=== PATIENT | female | born 1955 | race Caucasian/White ===

== ENCOUNTER 2020-09-24 09:50 | Emergency (ER) | payer OTHER ==
[2020-09-24 10:04] VITALS: BP 105/70; PULSE 94; TEMP 98.1; BMI 26.9
[2020-09-24] MEDS ORDERED: ACETAMINOPHEN 500 MG TABLET (FP) PO ONE (10:34)
[2020-09-24 11:06] LABS: THROAT:GRP A STREP Negative (Negative)
== END 2020-09-24 10:37 | disposition home or self-care (01) ==
LOC: JER 09:50
DX: U07.1 COVID-19 (principal)
CPT/HCPCS: 87070; 87077; 87880; 99283-25; C9803; U0003

== ENCOUNTER 2021-04-28 05:57 | Day surgery (SDC) | payer OTHER ==
[2021-04-23 11:41] VITALS: BMI 27.7
[2021-04-28] MEDS ORDERED: BUPIVACAINE HCL/PF 0.5% (5MG/ML) 10 ML VIAL ONE (07:14)
[2021-04-28] MEDS ORDERED: MIDAZOLAM HCL 2 MG/2 ML SINGLE DOSE VIAL ONE ×3 (07:14→09:43)
[2021-04-28] MEDS ORDERED: BUPIVACAINE LIPOSOME/PF (EXPAREL) 266 MG/20 ML VIAL ONE (07:14)
[2021-04-28] MEDS ORDERED: SODIUM CHLORIDE 0.9% P/F 10 ML VIAL IJ ONE (07:15)
[2021-04-28] MEDS ORDERED: VANCOMYCIN 1,000 MG VIAL (RESTRICTED TO ID ONLY) ONE (07:27)
[2021-04-28] MEDS ORDERED: MAG HYDROX/AL HYDROX/SIMETH 30 ML UNIT-DOSE CUP PO PRN (07:36)
[2021-04-28] MEDS ORDERED: BUPIVACAINE HCL 50 ML ONE (07:56)
[2021-04-28] MEDS ORDERED: PROPOFOL 20 ML ONE ×5 (08:10)
[2021-04-28] MEDS ORDERED: SUCCINYLCHOLINE CHLORIDE 200 MG/10 ML SYRINGE ONE (08:10)
[2021-04-28] MEDS ORDERED: ONDANSETRON 4 MG/2 ML VIAL ONE (08:26)
[2021-04-28] MEDS ORDERED: TRANEXAMIC ACID 1000 MG/10 ML VIAL ONE ×2 (08:26→10:15)
[2021-04-28] MEDS ORDERED: ceFAZolin SODIUM 1 GM VIAL ONE (08:26)
[2021-04-28] MEDS ORDERED: BUPIVICAINE 0.25%/MORPH PF/KETOROLAC - 51ML DISP.SYRINGE IA ONE (09:51)
[2021-04-28] MEDS ORDERED: KETOROLAC TROMETHAMINE 30 MG/1 ML VIAL ONE (10:15)
[2021-04-28] MEDS ORDERED: ACETAMINOPHEN INJECTION 100 ML IVPB ONE (11:32)
[2021-04-28] MEDS ORDERED: ACETAMINOPHEN 1000 MG/100 ML VIAL (NON FORMULARY) IVPB ONE ×4 (11:35→22:00)
[2021-04-28] MEDS: LACTATED RINGERS SOLUTION 1,000 ML IV SCH ×2 (12:02→13:37)
[2021-04-28] MEDS: PANTOPRAZOLE 40 MG TABLET PO SCH (12:44)
[2021-04-28] MEDS: SENNOSIDES/DOCUSATE COMBO (SENNA PLUS) TABLET (UD) PO SCH ×2 (12:44→21:54)
[2021-04-28] MEDS: MULTIVITAMINS (DAILY MVI) TABLET (FP) PO SCH (12:44)
[2021-04-28] MEDS: GABAPENTIN 300 MG CAPSULE PO SCH ×2 (12:44→21:54)
[2021-04-28] MEDS ORDERED: ONDANSETRON 4 MG/2 ML VIAL IVPUSH PRN (13:27)
[2021-04-28] MEDS ORDERED: PROMETHAZINE HCL 25 MG/1 ML VIAL IVPB PRN (13:27)
[2021-04-28] MEDS ORDERED: oxyCODONE HCL 5 MG TABLET PO PRN (13:28)
[2021-04-28] MEDS: CEFAZOLIN 2 GM/D5W 2 GM/50 ML ML IVPB SCH (14:59)
[2021-04-28] MEDS: ACETAMINOPHEN 325 MG TABLET (FP) PO SCH (16:47)
[2021-04-28] MEDS: oxyCODONE HCL 5 MG TABLET PO PRN (18:06)
[2021-04-28] MEDS ORDERED: SODIUM CHLORIDE 500 ML IV STA (21:28)
[2021-04-28] MEDS: oxyCODONE HCL 10 MG SUSTAINED ACTING TABLET PO SCH (21:58)
[2021-04-29] MEDS: CEFAZOLIN 2 GM/D5W 2 GM/50 ML ML IVPB SCH ×2 (00:38→08:38)
[2021-04-29] MEDS: ACETAMINOPHEN 325 MG TABLET (FP) PO SCH ×5 (02:24→19:50)
[2021-04-29] MEDS: oxyCODONE HCL 5 MG TABLET PO PRN ×3 (05:19→19:49)
[2021-04-29 07:16] LABS: HEMATOCRIT 34.3 % (32.4-45.2); MCH 30.6 pg (25.7-33.7); MCHC 32.1 g/dl (32.0-36.0); MEAN CELL VOLUME 95.2 fl (80-96); MEAN PLT VOLUME 7.3 fl (7.5-11.1); PLATELET COUNT 198 10^3/uL (134-434); RDW 13.5 % (11.6-15.6); WHITE BLOOD COUNT 7.5 K/mm3 (4.0-10.8)
[2021-04-29 07:29] LABS: CALCIUM 8.3 mg/dl (8.5-10); CREATININE 0.9 mg/dl (0.55-1.3)
[2021-04-29] MEDS: GABAPENTIN 300 MG CAPSULE PO SCH ×2 (09:26→21:33)
[2021-04-29] MEDS: SENNOSIDES/DOCUSATE COMBO (SENNA PLUS) TABLET (UD) PO SCH ×2 (09:26→21:34)
[2021-04-29] MEDS: MULTIVITAMINS (DAILY MVI) TABLET (FP) PO SCH (09:26)
[2021-04-29] MEDS: PANTOPRAZOLE 40 MG TABLET PO SCH (09:26)
[2021-04-29] MEDS: oxyCODONE HCL 10 MG SUSTAINED ACTING TABLET PO SCH ×2 (09:26→21:34)
[2021-04-29] MEDS: ASPIRIN 325 MG TABLET PO SCH ×2 (09:26→21:33)
[2021-04-29] MEDS: ONDANSETRON 4 MG/2 ML VIAL IVPUSH PRN ×2 (12:30→19:42)
[2021-04-29] MEDS ORDERED: SODIUM CHLORIDE 500 ML IV STA (14:08)
[2021-04-30] MEDS: ACETAMINOPHEN 325 MG TABLET (FP) PO SCH ×3 (01:00→12:49)
[2021-04-30] MEDS: oxyCODONE HCL 5 MG TABLET PO PRN (01:44)
[2021-04-30 06:30] VITALS: BP 102/64; PULSE 100; TEMP 99.8
[2021-04-30] MEDS: PANTOPRAZOLE 40 MG TABLET PO SCH (10:00)
[2021-04-30] MEDS: GABAPENTIN 300 MG CAPSULE PO SCH (10:34)
[2021-04-30] MEDS: oxyCODONE HCL 10 MG SUSTAINED ACTING TABLET PO SCH (10:35)
[2021-04-30] MEDS: ASPIRIN 325 MG TABLET PO SCH (10:35)
[2021-04-30] MEDS: SENNOSIDES/DOCUSATE COMBO (SENNA PLUS) TABLET (UD) PO SCH (10:35)
[2021-04-30] MEDS: MULTIVITAMINS (DAILY MVI) TABLET (FP) PO SCH (12:53)
== END 2021-04-30 15:12 | disposition home or self-care (01) ==
LOC: FASUSAT 05:57 → SUATTDRO 05:57 → EDSTATUS 08:00 → FM/S 12:07 → FASUSAT 04-30 15:12
PROVIDERS: ATTEND Nurse Practitioner Acute Care
PROC: 8E0YXBZ Computer Assisted Procedure of Lower Extremity (ICD-10-PCS; 2021-04-28)
PROC: 8E0Y0CZ Robotic Assisted Procedure of Lower Extremity, Open Approach (ICD-10-PCS; 2021-04-28)
PROC: 0SRC0J9 Replacement of Right Knee Joint with Synthetic Substitute, Cemented, Open Approach (ICD-10-PCS; principal; 2021-04-28 08:00)
DX: M17.11 Unilateral primary osteoarthritis, right knee (principal)
CPT/HCPCS: 20985; 27447; C1776; S2900; 36415; 73560-TC-RT-FY; 80048; 85027; 88305-TC; 88311-TC; 94760; 97010-GP; 97116-GP; 97163-GP; J0131

== ENCOUNTER 2021-12-26 05:56 | Day surgery (SDC) | payer OTHER ==
[2021-12-23 12:10] VITALS: BMI 28.2
[2021-12-26] MEDS ORDERED: BUPIVACAINE HCL/EPINEPHRINE/PF 30 ML VIAL IJ ONE (07:25)
[2021-12-26] MEDS ORDERED: LIDOCAINE HCL 2% (20ML MULTI-DOSE VIAL) ONE (07:36)
[2021-12-26] MEDS ORDERED: ROPIVACAINE HCL 0.5% 30ML VIAL ONE (07:36)
[2021-12-26] MEDS ORDERED: MIDAZOLAM HCL 2 MG/2 ML SINGLE DOSE VIAL ONE ×2 (07:37)
[2021-12-26] MEDS ORDERED: PROPOFOL 20 ML ONE ×4 (07:37)
[2021-12-26] MEDS ORDERED: oxyCODONE HCL 5 MG TABLET PO PRN ×2 (10:05→11:09)
[2021-12-26] MEDS ORDERED: ONDANSETRON 4 MG/2 ML VIAL IVPUSH PRN (10:05)
[2021-12-26] MEDS ORDERED: LACTATED RINGERS SOLUTION 1,000 ML IV SCH (10:15)
[2021-12-26] MEDS ORDERED: ACETAMINOPHEN INJECTION 100 ML IVPB ONE (11:05)
[2021-12-26] MEDS ORDERED: ACETAMINOPHEN 1000 MG/100 ML BAG IVPB ONE (11:08)
[2021-12-26] MEDS ORDERED: oxyCODONE HCL 5 MG TABLET PO ONE (11:08)
[2021-12-26] MEDS ORDERED: oxyCODONE HCL 5 MG TABLET ONE (11:14)
[2021-12-26 11:51] VITALS: TEMP 97.5
[2021-12-26] MEDS ORDERED: ONDANSETRON 4 MG/2 ML VIAL ONE (12:33)
[2021-12-26 13:22] VITALS: BP 104/63; PULSE 68
== END 2021-12-26 13:50 | disposition home or self-care (01) ==
LOC: FASU 05:56
PROVIDERS: ATTEND Orthopaedic Surgery Sports Medicine
PROC: 0RSK4ZZ Reposition Left Shoulder Joint, Percutaneous Endoscopic Approach (ICD-10-PCS; 2021-12-26)
PROC: 0PBB4ZZ Excision of Left Clavicle, Percutaneous Endoscopic Approach (ICD-10-PCS; principal; 2021-12-26 08:30)
PROC: 0RBK4ZZ Excision of Left Shoulder Joint, Percutaneous Endoscopic Approach (ICD-10-PCS; 2021-12-26 08:30)
DX: M75.22 Bicipital tendinitis, left shoulder (principal); M75.02 Adhesive capsulitis of left shoulder; M89.512 Osteolysis, left shoulder; M75.42 Impingement syndrome of left shoulder
CPT/HCPCS: 94760

== ENCOUNTER 2022-10-23 04:34 | Day surgery (SDC) | payer MEDICARE, OTHER ==
[2022-10-19 15:02] VITALS: BMI 27.7
[2022-10-23] MEDS ORDERED: BUPIVACAINE HCL/PF 0.75% 10 ML VIAL ONE (07:44)
[2022-10-23] MEDS ORDERED: LIDOCAINE HCL/PF 1% SDV 5ML VIAL ONE (07:44)
[2022-10-23 09:18] VITALS: RESP 20
[2022-10-23] MEDS ORDERED: LIDOCAINE HCL 1% PRESERVATIVE FREE - 30ML VIAL IJ ONE (11:15)
[2022-10-23] MEDS ORDERED: BUPIVACAINE HCL/PF 0.75% 10 ML VIAL NR ONE ×3 (11:16)
[2022-10-23] MEDS ORDERED: IOHEXOL 180 MG/1 ML ML IJ ONE ×2 (11:16→11:17)
[2022-10-23] MEDS ORDERED: ACETAMINOPHEN 500 MG TABLET (FP) ONE (12:20)
[2022-10-23 12:27] VITALS: BP 118/70; PULSE 64; TEMP 97.7
== END 2022-10-23 13:00 | disposition home or self-care (01) ==
LOC: JASU-SURG 04:34
PROVIDERS: ATTEND Pain Medicine Pain Medicine
PROC: 3E0T3BZ Introduction of Anesthetic Agent into Peripheral Nerves and Plexi, Percutaneous Approach (ICD-10-PCS; principal; 2022-10-23 10:00)
DX: M47.816 Spondylosis without myelopathy or radiculopathy, lumbar region (principal)
CPT/HCPCS: 76000-TC-FY

== ENCOUNTER 2022-11-17 04:19 | Day surgery (SDC) | payer MEDICARE, OTHER ==
[2022-11-13 14:57] VITALS: BMI 27.4
[2022-11-17] MEDS ORDERED: BUPIVACAINE HCL/PF 0.75% 10 ML VIAL PNB ONE (10:47)
[2022-11-17] MEDS ORDERED: LIDOCAINE 1% P/F 10 MG/ML VIAL INF ONE (10:47)
[2022-11-17 12:06] VITALS: BP 103/59; PULSE 55; RESP 20; TEMP 97.9
== END 2022-11-17 12:13 | disposition home or self-care (01) ==
LOC: JASU-SURG 04:19
PROVIDERS: ATTEND Pain Medicine Pain Medicine
PROC: BR16YZZ Fluoroscopy of Lumbar Facet Joint(s) using Other Contrast (ICD-10-PCS; 2022-11-17)
PROC: 3E0T3BZ Introduction of Anesthetic Agent into Peripheral Nerves and Plexi, Percutaneous Approach (ICD-10-PCS; principal; 2022-11-17 10:30)
DX: M47.816 Spondylosis without myelopathy or radiculopathy, lumbar region (principal)
CPT/HCPCS: 76000-TC-FY

== ENCOUNTER 2022-12-22 04:16 | Day surgery (SDC) | payer MEDICARE, OTHER ==
[2022-12-15 18:28] VITALS: BMI 27.3
[~2022-12-22 04:16] MED LIST: ACETAMINOPHEN 500 MG TABLET (FP) PO PRN; BUPIVACAINE HCL/PF 0.5% (5MG/ML) 10 ML VIAL NR ONE; BUPIVACAINE HCL/PF 0.75% 10 ML VIAL NR ONE; DEXAMETHASONE SOD PHOSPHATE 10 MG/1 ML VIAL IVPUSH ONE; LIDOCAINE 1% P/F 10 MG/ML VIAL PNB ONE; LIDOCAINE HCL/PF 2% SDV 5ML VIAL PNB ONE
[2022-12-22] MEDS ORDERED: LIDOCAINE HCL/PF 2% SDV 5ML VIAL PNB ONE (13:46)
[2022-12-22] MEDS ORDERED: BUPIVACAINE HCL/PF 0.75% 10 ML VIAL NR ONE (13:46)
[2022-12-22] MEDS ORDERED: DEXAMETHASONE SOD PHOSPHATE 10 MG/1 ML VIAL IVPUSH ONE (13:46)
[2022-12-22] MEDS ORDERED: LIDOCAINE 1% P/F 10 MG/ML VIAL PNB ONE (13:46)
[2022-12-22 14:50] VITALS: BP 121/73; PULSE 62; RESP 17; TEMP 97.7
[2022-12-22] MEDS ORDERED: ACETAMINOPHEN 500 MG TABLET (FP) PO PRN (16:01)
== END 2022-12-22 14:37 | disposition home or self-care (01) ==
LOC: JASU-SURG 04:16
PROVIDERS: ATTEND Pain Medicine Pain Medicine
PROC: 01553ZZ Destruction of Median Nerve, Percutaneous Approach (ICD-10-PCS; principal; 2022-12-22 15:00)
DX: M47.816 Spondylosis without myelopathy or radiculopathy, lumbar region (principal)
CPT/HCPCS: 76000-TC-FY; J1100

== ENCOUNTER 2023-02-16 04:25 | Day surgery (SDC) | payer MEDICARE, OTHER ==
[~2023-02-16 04:25] MED LIST changes: -BUPIVACAINE HCL/PF 0.5% (5MG/ML) 10 ML VIAL NR ONE; +LIDOCAINE 1% P/F 10 MG/ML VIAL INF ONE; -LIDOCAINE 1% P/F 10 MG/ML VIAL PNB ONE; +LIDOCAINE HCL/PF 2% SDV 5ML VIAL INF ONE; -LIDOCAINE HCL/PF 2% SDV 5ML VIAL PNB ONE
[2023-02-16] MEDS ORDERED: LIDOCAINE HCL/PF 2% SDV 5ML VIAL ONE (07:14)
[2023-02-16] MEDS ORDERED: BUPIVACAINE HCL/PF 0.5% (5MG/ML) 10 ML VIAL ONE (07:15)
[2023-02-16] MEDS ORDERED: LIDOCAINE HCL/PF 1% SDV 5ML VIAL ONE (07:15)
[2023-02-16] MEDS ORDERED: BUPIVACAINE HCL/PF 0.75% 10 ML VIAL ONE (07:33)
[2023-02-16] MEDS ORDERED: DEXAMETHASONE SOD PHOSPHATE 10 MG/1 ML VIAL ONE (07:33)
[2023-02-16] MEDS ORDERED: ACETAMINOPHEN 500 MG TABLET (FP) PO PRN (08:40)
[2023-02-16 09:36] VITALS: RESP 20; BMI 27.4
[2023-02-16] MEDS ORDERED: LIDOCAINE HCL/PF 2% SDV 5ML VIAL INF ONE (10:36)
[2023-02-16] MEDS ORDERED: LIDOCAINE 1% P/F 10 MG/ML VIAL INF ONE (10:36)
[2023-02-16] MEDS ORDERED: BUPIVACAINE HCL/PF 0.75% 10 ML VIAL NR ONE (10:36)
[2023-02-16] MEDS ORDERED: DEXAMETHASONE SOD PHOSPHATE 10 MG/1 ML VIAL IVPUSH ONE (10:36)
[2023-02-16 11:23] VITALS: BP 110/65; PULSE 82; TEMP 97.2
== END 2023-02-16 11:24 | disposition home or self-care (01) ==
LOC: JASU-SURG 04:25
PROVIDERS: ATTEND Pain Medicine Pain Medicine
PROC: 015B3ZZ Destruction of Lumbar Nerve, Percutaneous Approach (ICD-10-PCS; principal; 2023-02-16 10:21)
DX: M47.816 Spondylosis without myelopathy or radiculopathy, lumbar region (principal)
CPT/HCPCS: 76000-TC-FY; J1100

== ENCOUNTER 2023-07-30 04:10 | Day surgery (SDC) | payer MEDICARE, OTHER ==
[2023-07-29 10:59] VITALS: BMI 27.4
[2023-07-30 07:05] VITALS: RESP 18
[2023-07-30] MEDS ORDERED: LIDOCAINE HCL/PF 1% SDV 5ML VIAL ONE (07:28)
[2023-07-30] MEDS ORDERED: LIDOCAINE HCL 1%, 10 MG/ML (20ML VIAL) INF ONE (08:20)
[2023-07-30] MEDS ORDERED: ACETAMINOPHEN 500 MG TABLET (FP) ONE (09:43)
[2023-07-30] MEDS ORDERED: ACETAMINOPHEN 500 MG TABLET (FP) PO PRN (09:46)
[2023-07-30 10:19] VITALS: BP 132/70; PULSE 70; TEMP 97.9
== END 2023-07-30 10:05 | disposition home or self-care (01) ==
LOC: JASU-SURG 04:10
PROVIDERS: ATTEND Pain Medicine Pain Medicine
PROC: 01HY3MZ Insertion of Neurostimulator Lead into Peripheral Nerve, Percutaneous Approach (ICD-10-PCS; principal; 2023-07-30 08:00)
DX: G89.4 Chronic pain syndrome (principal); M25.512 Pain in left shoulder
CPT/HCPCS: 64555; C1778

== ENCOUNTER 2023-09-03 04:07 | Day surgery (SDC) | payer MEDICARE, OTHER ==
[2023-09-01 14:38] VITALS: BMI 27.4
[~2023-09-03 04:07] MED LIST changes: -ACETAMINOPHEN 500 MG TABLET (FP) PO PRN; -BUPIVACAINE HCL/PF 0.75% 10 ML VIAL NR ONE; -DEXAMETHASONE SOD PHOSPHATE 10 MG/1 ML VIAL IVPUSH ONE; -LIDOCAINE 1% P/F 10 MG/ML VIAL INF ONE; +LIDOCAINE HCL 1% PRESERVATIVE FREE - 30ML VIAL IJ ONE; -LIDOCAINE HCL/PF 2% SDV 5ML VIAL INF ONE
[2023-09-03 07:27] VITALS: RESP 18
[2023-09-03] MEDS ORDERED: LIDOCAINE HCL 1% PRESERVATIVE FREE - 30ML VIAL IJ ONE (11:23)
[2023-09-03] MEDS ORDERED: ACETAMINOPHEN 500 MG TABLET (FP) ONE (12:03)
[2023-09-03 13:43] VITALS: TEMP 97.8
[2023-09-03 13:46] VITALS: BP 119/76; PULSE 70
[2023-09-03] MEDS ORDERED: ACETAMINOPHEN 500 MG TABLET (FP) PO PRN (14:26)
== END 2023-09-03 12:25 | disposition home or self-care (01) ==
LOC: JASU-SURG 04:07
PROVIDERS: ATTEND Pain Medicine Pain Medicine
PROC: 01HY3MZ Insertion of Neurostimulator Lead into Peripheral Nerve, Percutaneous Approach (ICD-10-PCS; principal; 2023-09-03 10:00)
DX: G89.4 Chronic pain syndrome (principal)
CPT/HCPCS: 64555; C1778

== ENCOUNTER 2024-01-21 04:09 | Day surgery (SDC) | payer MEDICARE, OTHER ==
[2024-01-21 06:25] VITALS: RESP 18
[2024-01-21 06:38] VITALS: BMI 26.7
[2024-01-21] MEDS ORDERED: LIDOCAINE HCL/PF 1% SDV 5ML VIAL ONE (07:09)
[2024-01-21] MEDS: LIDOCAINE HCL 1%, 10 MG/ML (20ML VIAL) INF ONE ×3 (08:35)
[2024-01-21] MEDS: LIDOCAINE 1% P/F 10 MG/ML VIAL INF ONE (08:35)
[2024-01-21] MEDS ORDERED: ACETAMINOPHEN 500 MG TABLET (FP) ONE (09:04)
[2024-01-21] MEDS: ACETAMINOPHEN 500 MG TABLET (FP) PO PRN (09:08)
[2024-01-21 10:49] VITALS: BP 118/71; PULSE 58; TEMP 97.6
== END 2024-01-21 09:49 | disposition home or self-care (01) ==
LOC: JASU-SURG 04:09
PROVIDERS: ATTEND Pain Medicine Pain Medicine
PROC: 01HY3MZ Insertion of Neurostimulator Lead into Peripheral Nerve, Percutaneous Approach (ICD-10-PCS; principal; 2024-01-21 08:00)
DX: G89.4 Chronic pain syndrome (principal); M25.512 Pain in left shoulder
CPT/HCPCS: 64555; C1778

== ENCOUNTER 2024-02-25 04:38 | Day surgery (SDC) | payer MEDICARE, OTHER ==
[2024-02-17 09:06] VITALS: BMI 26.6
[2024-02-25] MEDS ORDERED: LIDOCAINE HCL/PF 1% SDV 5ML VIAL ONE (07:11)
[2024-02-25] MEDS ORDERED: ACETAMINOPHEN 500 MG TABLET (FP) PO PRN (10:26)
[2024-02-25] MEDS: LIDOCAINE HCL 1% PRESERVATIVE FREE - 30ML VIAL IJ ONE (12:48)
[2024-02-25 13:13] VITALS: BP 111/66; PULSE 60; RESP 16; TEMP 97.7
== END 2024-02-25 13:39 | disposition home or self-care (01) ==
LOC: JASU-SURG 04:38
PROVIDERS: ATTEND Pain Medicine Pain Medicine
PROC: 01HY3MZ Insertion of Neurostimulator Lead into Peripheral Nerve, Percutaneous Approach (ICD-10-PCS; principal; 2024-02-25 12:15)
DX: G89.4 Chronic pain syndrome (principal); M25.512 Pain in left shoulder
CPT/HCPCS: 64555; C1778